=== PATIENT | male | born 1960 | race Caucasian/White ===

== ENCOUNTER 2016-12-01 10:46 | Emergency (ER) | payer OTHER ==
[~2016-12-01] VITALS: Wt 64.0 kg
[~2016-12-01 10:46] MED LIST: BACTDS PO; CIPR500T4 PO; IBUP-1542 PO; TRAM50TA2 PO
--- NOTE | 2016-12-01 13:09 | RADRPT ---
PROCEDURE: XR Foot. CLINICAL INDICATION: Right foot pain. Trauma. TECHNIQUE: Three views of the right foot are available for review. COMPARISON: None available FINDINGS: The osseous structures, articular spaces, and surrounding soft tissues are intact. No acute fractur e or dislocation is seen. No radiopaque foreign body is identified. Bony mineralization is normal. Mild dorsal soft tissue swelling is identified. There is an arrow pointing towards the first digit . The right first digit is intact. IMPRESSION: 1. Unremarkable right foot x-ray series. 2. No acute fracture or dislocation. 3. Dorsal soft tissue swelling and edema. RPTAT: HMJB .Jacques Nayak MD, MD Date Time Electronically viewed and signed by .Jacques Nayak MD, on 12/01/2016 13:09 .B/
[2016-12-01] MEDS ORDERED: ACET1TAB40 PO (13:16)
[2016-12-01] MEDS ORDERED: IBUP-1542 PO (13:16)
--- NOTE | 2016-12-01 13:20 | ERD ---
ER Documentation Chief Complaint Date/Time DATE: 12/01/16 TIME: 13:19 Chief Complaint R FOOT PAIN FROM SOMETHING FALLING ON IT 1 WK AGO. MORE SWELLING. HPI This 55-year-old male presents with right foot pain after having an item in a machine shop fallen at 1 week ago. Denies any fevers, redness, bleeding, restricted range of motion or weakness. ROS All systems reviewed and are negative except as per history of present illness. Medications Home Meds Active Scripts Acetaminophen with Codeine (Acetaminophen-Cod #3 Tablet) 1 Each Tablet, 1 TAB PO Q6H Y for PAIN, #12 TAB Prov:REMIGIO NOLASCO MD 12/01/16 Ibuprofen* (Motrin*) 600 Mg Tab, 600 MG PO Q6, #20 TAB Prov:REMIGIO NOLASCO MD 12/01/16 Sulfamethoxazole-Trimethoprim* (Bactrim* DS) 800-160 Mg Tab, 1 TAB PO BID for 10 Days, TAB Prov:REMIGIO NOLASCO MD 03/28/16 Tramadol HCl (Tramadol HCl) 50 Mg Tablet, 50 MG PO Q4 Y for PAIN, #18 TAB Prov:REMIGIO NOLASCO MD 03/28/16 Ibuprofen* (Motrin*) 600 Mg Tab, 600 MG PO Q6, #20 TAB Prov:REMIGIO NOLASCO MD 03/28/16 Ciprofloxacin Hcl* (Ciprofloxacin Hcl*) 500 Mg Tablet, 500 MG PO BID for 14 Days , TAB Prov:AYE GARCÍA PA-C 02/16/16 Allergies Allergies: Coded Allergies: Penicillins (Verified Allergy, Unknown, 03/28/16) PMhx/Soc Medical and Surgical Hx: pt denies Medical Hx, pt denies Surgical Hx Hx Alcohol Use: Yes (social) Hx Substance Use: No Hx Tobacco Use: No Smoking Status: Never smoker Physical Exam Vitals Vital Signs Date Time Temp Pulse Resp B/P Pulse Ox O2 Delivery O2 Flow Rate FiO2 12/01/16 10:52 99.4 76 21 165/91 99 Physical Exam Const: [] Alert, [id number] per Head: Atraumatic Eyes: Normal Conjunctiva ENT: Normal External Ears, Nose and Mouth. Neck: Full range of motion..~ No meningismus. Resp: Clear to auscultation bilaterally Cardio: Regular rate and rhythm, no murmurs Abd: Soft, non tender, non distended. Normal bowel sounds Skin: No petechiae or rashes Back: No midline or flank tenderness Ext: No cyanosis, or edema. Tenderness in the right first metatarsophalangeal joint without erythema, warmth, restricted range of motion weakness. Neur: Awake and alert Psych: Normal Mood and Affect Procedures/MDM X-ray Foot 3V Interpreted by me: Bones: [No fracture] Joints: [No dislocation] Foreign body: [None]. Impression abnormal right foot x-ray Patient presents with pain in right foot after a crush injury without evidence of fracture, dislocation, tendon, neurologic deficit or bacterial infection. Will treat with ibuprofen, Tylenol 3, instructed to rest and ice and follow-up with primary doctor and possible orthopedist for pain next week. The patient was stable with no new complaints during the ER course. Clinically, there is no current evidence to suggest meningitis, sepsis, acute abdomen, pneumonia, acute coronary syndrome, pulmonary embolism, or any other emergent condition appearing to require further evaluation or hospitalization. The patient should certainly return for any new or worsening symptoms per the aftercare instructions. They should otherwise follow-up with her primary care doctor for reevaluation this week. Departure Diagnosis: Primary Impression: Injury of foot Encounter type: initial encounter Laterality: right Qualified Code: S99.921A - Injury of foot, right, initial encounter Condition: Stable Patient Instructions: Contusion, Foot Additional Instructions: X-ray read as normal. Recheck with primary doctor and possible orthopedist for pain next week. Recheck sooner for fevers, redness, new symptoms. REMIGIO NOLASCO MD Dec 01, 2016 13:20
[2016-12-01 13:37] VITALS: BP 179/103; PULSE 66; RESP 16; TEMP 99
== END 2016-12-01 13:35 | disposition home or self-care (01) ==
LOC: FTE 10:46
DX: S99.921A Unspecified injury of right foot, initial encounter (principal); W20.8XXA Other cause of strike by thrown, projected or falling object, initial encounter; Y92.9 Unspecified place or not applicable
CPT/HCPCS: 73630; Z7502